=== PATIENT | female | born 1950 | race Caucasian/White ===

== ENCOUNTER 2017-03-19 11:58 | Emergency (ER) | payer MEDICARE ==
[~2017-03-19] VITALS: Ht 162.6 cm; Wt 71.4 kg
[~2017-03-19 11:58] MED LIST: ALPR0.25 PO; BUPR150T8 PO; LEVO88TA4 PO
[2017-03-19 12:07] VITALS: BP 154/101; PULSE 72; RESP 16; O2SAT 96
--- NOTE | 2017-03-19 12:18 | ED.REPORT ---
HPI-Abd Pain F 40 and Over Date of Service Mar 19, 2017 ED Provider: Austin Casanova Patient is a 67 year old female with a hx of hypothyroid, HTN, and kidney stones who presents to the ED complaining of lower abdominal pain onset 10 days ago. Her abdominal pain is described as cramping. Associated symptoms include dark stools with bright red blood, nausea, malaise, and diaphoresis. She denies fever, chills, vomiting, dysuria, or any other symptoms. She last had a colonoscopy 11 years ago. Pt reports her abdominal pain does not feel like her previous kidney stones. She does not take ASA most days. She has not been using Pepto Bismol or iron supplements. Nursing Notes Stated Complaint: ABDOMINAL PAIN/BLOOD IN STOOL Chief Complaint: Female Abdominal Pain Nursing Notes Reviewed: Yes Allergies: Coded Allergies: ciprofloxacin HCl (Verified Allergy, Unknown, UNKNOWN, 03/19/17) oxycodone HCl (Verified Adverse Reaction, Severe, N&V, 03/19/17) Scheduled Bupropion ER (Wellbutrin SR) 150 Mg Tablet.er 150 MG PO DAILY Levothyroxine (Levothyroxine) 88 Mcg Tablet 88 MCG PO Daily EXCEPT Mondays Scheduled PRN Alprazolam (Xanax) 0.25 Mg Tablet 0.25 MG PO DAILY PRN PRN For Anxiety General Time Seen by MD: 12:17 Chief Complaint Abdominal pain Hx Obtained From: Patient Arrived By: Walk-in Sudden in Onset?: Yes Onset Occurred: More than a week ago... Symptom Duration: Since onset Location: : Abdomen lower Quality: Cramping Severity: Current: Mild Severity: Maximum: Mild Similar Sx Previous: No Risk Factors )( AAA Risk Stratification HypertensionNo Smoking Risk factors reviewed Past Medical History Past Medical History 1. Hypothyroidism. 2. Hypertension. 3. Depression. 4. Kidney Stones Past Surgical History 1. Right rotator cuff repair 2. 2. Ganglionic cyst removal of back 2. 3. Bilateral tennis elbow arthroscopy. 4. Bilateral carpal tunnel repair 2. 5. Ovarian cyst surgery. 6. Ectopic . 7. Incompetent cervical surgeries. 8. Face lift 9. Lami x3 10. abdominoplasty Smoking History Never Smoker Social History The patient has been for 3-1/2 years. She has 1 child of her own, a son who is 39. 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 Alcohol Use: 1-3 per week Drug Use: Denies drug use Other Social History: , Local resident Ambulatory Status Independent Review of Systems Constitutional: Reports: Malaise, Denies: Chills, Fever GI: Reports: Abdominal pain, Hematochezia, Melena, Nausea, Denies: Vomiting Female: Denies: Dysuria Complete sys rev & neg: except as marked. Skin: Reports Diaphoresis Physical Exam Vital Signs Vital Signs (First) Date Time Temp Pulse Resp B/P Pulse Ox O2 Delivery O2 Flow Rate FiO2 03/19/17 12:07 36.9 72 16 154/101 96 Room Air Initial VS: Reviewed, Vital signs abnormal Head / Eyes: Atraumatic, Normocephalic Neck: Supple, Full range of motion Skin: Warm, Dry Neurologic: Alert, Oriented, Nonfocal General/Constitutional: Awake, Alert, No acute distress Respiratory / Chest: Breath sounds NL, No respiratory distress Cardiovascular: Heart rate NL, Regular rhythm, Heart sounds NL Abdomen: Atraumatic, Soft, Non-tender Back: Inspection NL Rectum / Perineum: No gross blood Very dark, formed stool present guaiac negative Interpretation & Diagnostics Lab Results Interpretation Result Diagram: 03/19/17 1300 03/19/17 1300 Test 03/19/17 12:47 03/19/17 13:00 Hold Urine Received (Received) White Blood Count 4.4th/mm3 (3.8-10.1) Red Blood Count 4.54mil/mm3 (3.90-5.20) Hemoglobin 14.7g/dL (12.0-15.6) Hematocrit 43.7% (35.0-46.0) Mean Corpuscular Volume 96.3fL (81-100) Mean Corpuscular Hemoglobin 32.4pg (27.0-35.0) Mean Corpuscular Hemoglobin Concent 33.6% (32.0-37.0) Red Cell Distribution Width 12.3% (12.3-15.4) Platelet Count 241bil/L (150-400) Neutrophils (%) (Auto) 59.9% (40-74) Lymphocytes (%) (Auto) 26.8% (14-46) Monocytes (%) (Auto) 10.8% (4-12) Eosinophils (%) (Auto) 1.4% (0-5) Basophils (%) (Auto) 0.9% (0-3) Prothrombin Time 10.4sec (8.1-12.5) Prothromb Time International Ratio 0.97ratio Sodium Level 141mEq/L (134-144) Potassium Level 4.0mEq/L (3.5-5.2) Chloride Level 103mEq/L (97-108) Carbon Dioxide Level 23mmol/L (18-29) Blood Urea Nitrogen 17mg/dL (8-27) Creatinine 0.88mg/dL (0.57-1.00) Estimat Glomerular Filtration Rate 92mL/min (>59) Glucose Level 105mg/dL (60-99) Calcium Level 9.1mg/dL (8.5-10.1) Total Bilirubin 0.5mg/dL (0.0-1.2) Aspartate Amino Transf (AST/SGOT) 43U/L (0-50) Alanine Aminotransferase (ALT/SGPT) 57U/L (0-32) Alkaline Phosphatase 50U/L (25-165) Total Protein 7.2g/dL (6.4-8.4) Albumin 4.6g/dL (3.4-5.0) Re-Eval/Medical Decision Med Decision/Clinical Course Despite her report of bright red blood per rectum and melena, her rectal examination shows firm dark stool that is guaiac negative. Vital signs and laboratory data are entirely reassuring. I think outpatient follow-up at this point is Step. I have taken the liberty of making her an appointment with her primary care provider tomorrow at 10 in the morning for further evaluation. Re-Evaluation/Progress : Time of Eval: 14:04 )( Re-Eval Abdomen: Soft Re-Evaluation/Progress Note: Rechecked pt. Discussed labs results and plan for discharge. Patient understands and agrees with plan. All questions addressed at this time. Consultation : Referral / Consult Name: Jennifer Servin MD Consulted With: Primary care physician Call Returned at: 14:10 Gold Cutter: Will see in office, Agrees with eval, Agrees with plan Note: Discussed pt's case. Will see in clinic tomorrow. Counseled Regarding: Diagnosis, Lab results, Need for follow-up, When/why to return to ED Discharge & Departure Primary Impression: Hematochezia Additional Impression: Abdominal pain Abdominal location: generalized Qualified Code: R10.84 - Generalized abdominal pain Disposition: Home Discharge Condition All VS Reviewed: Yes Condition: Stable Patient Instructions: Acute Abdominal Pain (ED) Additional Instructions: See Dr. Servin tomorrow morning at 10:30. Please arrive at the clinic at 10:15. Tylenol or ibuprofen as needed for pain. Follow-up right away for worsening symptoms. Referrals: Jennifer Servin MD (PCP) Scribe Attestation Portions of this note were transcribed by Helen Byrd. I, Dr. Casanova personally performed the history, physical exam and medical decision-making; I reviewed and confirmed the accuracy of the information in the transcribed note. Signed by: Arnulfo Moran, 03/19/17 copies to: Jennifer Servin MD, Kirk H MD Mar 19, 2017 12:17 HELEN BYRD Mar 19, 2017 12:30
[2017-03-19 13:11] LABS: BASOPHILS % (AUTO) 0.9 % (0-3); EOSINOPHILS % (AUTO) 1.4 % (0-5); MONOCYTES % (AUTO) 10.8 % (4-12); Mean Corpuscular Hemoglobin 32.4 pg (27.0-35.0); Mean Corpuscular Volume 96.3 fL (81-100); NEUTROPHILS % (AUTO) 59.9 % (40-74); Platelet Count 241 bil/L (150-400)
[2017-03-19 13:27] LABS: INR 0.97 ratio
== END 2017-03-19 14:19 | disposition home or self-care (01) ==
LOC: SED 11:58
DX: K92.1 Melena (principal); R10.84 Generalized abdominal pain; I10 Essential (primary) hypertension; E03.9 Hypothyroidism, unspecified; F32.9 Major depressive disorder, single episode, unspecified; Z87.442 Personal history of urinary calculi; Z88.1 Allergy status to other antibiotic agents; Z88.5 Allergy status to narcotic agent